=== PATIENT | male | born 1985 | race African-American/Black ===

== ENCOUNTER 2024-03-19 21:25 | Emergency (ER) | payer BC, SELFPAY ==
[2024-03-19 21:41] VITALS: BP 137/87; PULSE 63; RESP 18; TEMP 36.3; O2SAT 95; BMI 29.1
[2024-03-20 02:12] VITALS: BP 117/83; PULSE 52; RESP 12; TEMP 36.5; O2SAT 100
--- NOTE | 2024-03-20 02:18 | PC.NURSE ---
Pt a&ox4, no signs of distress Pt reports he cut his finger with a knife by accident Pt ambulates with a steady gait Plan of care ongoing
[2024-03-20 05:13] VITALS: BP 110/80; PULSE 60; RESP 12; TEMP 36.4; O2SAT 100
--- NOTE | 2024-03-20 05:36 | ED_ITS ---
HPI - Wound/Laceration General Chief Complaint: Wound/Laceration Stated Complaint: left thumb wound Time Seen by Provider: 03/20/24 04:09 Source: patient Mode of arrival: ambulatory Limitations: no limitations History of Present Illness ED Provider: nery REYES narrative: Apparently patient was using a new knife cutting the food accidentally cut his left thumb comes here with 3 cm of laceration of the left thumb patient has had last tetanus shot about 6 years ago Related Data Allergies Allergy/AdvReac Type Severity Reaction Status Date / Time No Known Allergies Allergy Verified 03/19/24 21:44 Review of Systems 2 Review of Systems: Yes all other systems are reviewed and are negative PMFSH Social History Social History Advance Directives: No Advance Directives Information Provided: No Physical Exam 2 Vital Signs: Vital Signs: Last Vital Signs Temp 97.5 F 03/20/24 05:13 Pulse 60 03/20/24 05:13 Resp 12 03/20/24 05:13 BP 110/80 03/20/24 05:13 Pulse Ox 100 03/20/24 05:13 O2 Del Method Room Air 03/20/24 02:12 BMI result Body Mass Index 29.1 Extrem: Hand/finger images: 1. 3 cm laceration left thumb deep structures intact tendons intact neurovascular intact Procedures Laceration Laceration 1: Site: hand (Left thumb) Side (If applicable): left Description: linear Depth: simple, single layer Local Anesthetic: lidocaine 1% Amount of anesthesia used (mL): 3 Skin layer closed with: nylon Size (cm): 5-0 Number of sutures: 6 Technique: simple, interrupted Discharge Plan Discharge Clinical Impression: Laceration of thumb without damage to nail Patient Disposition: Home, Self-Care Instructions: Laceration (ED) Additional Instructions: Suture removal in 7-10 days Local care as advised Interventions: ED Discharge Assessment Last Done: 03/20/24 05:13 Discharge Date/Time: 03/20/24 05:15 Print Language: [place]
== END 2024-03-20 05:15 | disposition home or self-care (01) ==
PROVIDERS: Emergency Provider Internal Medicine
DX: S61.012A Laceration without foreign body of left thumb without damage to nail, initial encounter (principal); W26.0XXA Contact with knife, initial encounter; Y93.G1 Activity, food preparation and clean up; Y92.000 Kitchen of unspecified non-institutional (private) residence as the place of occurrence of the external cause; Y99.9 Unspecified external cause status
CPT/HCPCS: 12002; 99283; 99284